=== PATIENT | female | born 1995 | race Caucasian/White ===

== ENCOUNTER → 2017-06-24 | Outpatient (CLI) | payer BC ==
[~2017-06-24] MED LIST: ADVAIR 250-501 EACH INH; ADVAIR HFA 230M12 GM INH; LEVALBUTER1.25 MG/0. INH; LEXAPRO 10 MG T10 M2 PO; PREDNISONE 20 M20 M1 PO; PREVACID30 MG PO; SINGULAIR 10 MG10 M1 PO; XOPENEX HFA15 GM IH; XYZAL5 MG PO
--- NOTE | ~2017-06-24 | EEG ---
[facility] [place] [address] ELECTROENCEPHALOGRAM Name: SABRA DUNN [id number] Admission: 06/24/17 Attend Phys: Kita Steward MD Discharge: Date of : 89 Report #: [id number] THIS REPORT FOR: //name// CC: Zoey Steward DATE OF SERVICE: 06/24/2017 EEG This patient is being evaluated for the possibility of seizure. EEG was done by placing the electrodes by standard 10-20 system of electrode placement. Both referential and sequential montages were used for recording. Background activity in this patient's EEG is about 11 Hz and 30 microvolts. This is a symmetrical activity. This patient became drowsy that is associated with bilateral slowing and a few vertex sharp waves, which were symmetrical. Photic stimulation is unremarkable. Throughout the record, no active epileptiform activity was noticed. IMPRESSION: This patient's EEG is within normal limits. Thank you very much for this referral. By: [id number] Ced Arguelles MD /dexter
[2017-06-24 13:22] LABS: FOLIC ACID 12.6 ng/mL (8.6-58.9)
== END ==
LOC: LABMALL 11:51
PROVIDERS: Psychiatry & Neurology Neurology
DX: R41.82 Altered mental status, unspecified (principal)

== ENCOUNTER → 2017-07-03 | Outpatient (CLI) | payer BC | LOC: MRI 08:28 | DX: R41.82 Altered mental status, unspecified (principal) ==